=== PATIENT | female | born 1950 | race Caucasian/White ===

== ENCOUNTER 2017-03-17 13:28 | Outpatient (CLI) | payer BC, OTHER | END 2017-03-17 13:29 | disposition home or self-care (01) | DX: G47.33 Obstructive sleep apnea (adult) (pediatric) (principal) ==

== ENCOUNTER 2017-06-18 12:52 | Outpatient (CLI) | payer OTHER ==
--- NOTE | 2017-06-19 14:55 | Mammography Report ---
DIGITAL SCREENING MAMMOGRAM: 06/18/2017 CLINICAL INDICATION: A 66-year-old nulliparous patient with family history of breast cancer for scre ening. COMPARISON: 07/2015, 01/2014, 12/2012, 11/2011, 07/2010. TECHNIQUE: Routine CC and MLO projections were obtained of the breasts. FINDINGS: The breasts demonstrate heterogeneously dense fibroglandular parenchyma bilaterally. A fe w punctate, typically benign calcifications are present. No suspicious masses, clustered microcalcif ications, or regions of architectural distortion are identified. IMPRESSION: BENIGN FINDINGS. RECOMMENDATION: Routine annual screening unless otherwise clinically indicated. BI-RADS category 2, benign findings. STANDARD QUALIFYING STATEMENTS 1. This examination was reviewed with the aid of Computer-Aided Detection (CAD). 2. A negative or benign imaging report should not delay biopsy if clinically suspicious findings are present. Consider surgical consultation if warranted. More than 5% of cancers are not identified by i maging. 3. Dense breasts may obscure an underlying neoplasm. JOB #: [id number] EXT JOB #:[id number]
== END 2017-06-18 12:53 | disposition home or self-care (01) ==
LOC: DI 12:52
PROVIDERS: ATTEND Internal Medicine
DX: Z12.31 Encounter for screening mammogram for malignant neoplasm of breast (principal); Z80.3 Family history of malignant neoplasm of breast
CPT/HCPCS: 77067

== ENCOUNTER 2018-01-09 08:10 | Outpatient (CLI) | payer OTHER ==
[2018-01-09 11:50] LABS: BASOPHILS # (AUTO) 0.1 10^3/uL (0.0-0.1); BASOPHILS % (AUTO) 2.1 %; EOSINOPHILS # (AUTO) 0.2 10^3/uL (0.0-0.7); EOSINOPHILS % (AUTO) 4.3 %; HGB - HEMOGLOBIN 13.4 g/dL (12.0-16.0); LYMPHOCYTES # (AUTO) 1.2 10^3/uL (1.5-3.5); LYMPHOCYTES % (AUTO) 27.7 %; MEAN CORPUSCULAR HEMOGLOBIN 30.3 pg (27.0-31.0); MEAN CORPUSCULAR HGB CONC 33.7 g/dL (32.0-36.0); MEAN CORPUSCULAR VOLUME 90.1 fL (81.0-99.0); MONOCYTES # (AUTO) 0.5 10^3/uL (0.0-1.0); MONOCYTES % (AUTO) 11.4 %; NEUTROPHILS # (AUTO) 2.3 10^3/uL (1.5-6.6); NEUTROPHILS % (AUTO) 54.5 %; PLT - PLATELET COUNT 151 10^3/uL (130-450); RED BLOOD COUNT 4.43 10^6/uL (4.20-5.40); RED CELL DISTRIBUTION WIDTH 13.4 % (12.0-15.0); WHITE BLOOD COUNT 4.3 x10^3/uL (4.8-10.8)
[2018-01-09 12:03] LABS: ALBUMIN 3.9 g/dL (3.2-5.5); ALBUMIN/GLOBULIN RATIO 1.4 (1.0-2.2); ALKALINE PHOSPHATASE 43 IU/L (42-121); ALT ALANINE AMINOTRANSFERASE 19 IU/L (10-60); AST ASPARTATE AMINOTRANSFERASE 20 IU/L (10-42); BILIRUBIN,TOTAL 0.7 mg/dL (0.2-1.0); BUN - BLOOD UREA NITROGEN 16 mg/dL (6-20); CALCIUM 8.8 mg/dL (8.5-10.3); CARBON DIOXIDE - CO2 29 mmol/L (21-32); CHLORIDE 104 mmol/L (101-111); CHOL/HDL RATIO 3.1 (<4.4); CHOLESTEROL 202 mg/dL; CREATININE 0.8 mg/dL (0.4-1.0); GFR - MDRD 72 (>89); GLUCOSE 85 mg/dL (70-100); HDL CHOLESTEROL 66 mg/dL; LDL CHOLESTEROL,CALCULATED 124 mg/dL; LDL/HDL RATIO 1.9 (<4.4); SODIUM 139 mmol/L (135-145); TOTAL PROTEIN 6.7 g/dL (6.7-8.2); VLDL CHOLESTEROL 12 mg/dL
== END 2018-01-09 08:11 | disposition home or self-care (01) ==
LOC: LAB.F 08:10
PROVIDERS: ATTEND Internal Medicine
DX: Z00.00 Encounter for general adult medical examination without abnormal findings (principal)
CPT/HCPCS: 36415; 80053; 80061; 83721; 84443; 85025

== ENCOUNTER 2020-06-19 10:58 | Day surgery (SDC) | payer MEDICARE, OTHER ==
[2020-06-19] MEDS ORDERED: LACTATED RINGERS 1,000 ML IV ONE (11:47)
[2020-06-19] MEDS ORDERED: fentaNYL 250 MCG/5 ML VIAL IVP ONE (13:30)
[2020-06-19] MEDS ORDERED: MIDAZOLAM 2 MG/2 ML VIAL IVP ONE (13:30)
[2020-06-19] MEDS ORDERED: LACTATED RINGERS 800 ML IV ONE (14:11)
[2020-06-19 14:46] VITALS: BP 99/67
== END 2020-06-19 10:59 | disposition home or self-care (01) ==
LOC: SDS 10:58
PROVIDERS: ATTEND Internal Medicine Gastroenterology
PROC: 0DBN8ZZ Excision of Sigmoid Colon, Via Natural or Artificial Opening Endoscopic (ICD-10-PCS; principal; 2020-06-19 12:15)
DX: Z12.11 Encounter for screening for malignant neoplasm of colon (principal); K63.5 Polyp of colon
CPT/HCPCS: 45380; J3010; J7120

== ENCOUNTER 2020-07-07 14:30 | Outpatient (CLI) | payer MEDICARE, OTHER ==
--- NOTE | 2020-07-07 16:01 | DEXA Report ---
PROCEDURE: Dexa Spine and/or Hip INDICATIONS: OSTEOPENIA TECHNIQUE: Dual energy x-ray absorptiometry (DXA) was performed on a Ium System. Regions measur ed are the AP Spine, femoral neck, and if needed forearm. COMPARISON: None. FINDINGS: Lumbar Spine: Bone Mineral Density 1.068 g/cm/cm,T score -0.9, normal Left Hip: Bone Mineral Density 0.799 g/cm/cm,T score -1.7, osteopenia Left Femoral Neck: Bone Mineral Density 0.700 g/cm/cm, T score -2.4, osteopenia (T score greater or equal to -1.0: NORMAL) (T score from -1.1 to -2.4: OSTEOPENIA) (T score less than or equal to -2.5 to: OSTEOPOROSIS) Impression: Normal bone mineral density at the lumbosacral spine, osteopenia at the left hip region a nd also the left femoral neck. Patients with diagnosis of osteoporosis or osteopenia should have regular bone mineral density assess ment. For those eligible for Medicare, routine testing is allowed once every 2 years. Testing frequ ency can be increased for patients who have rapidly progressing disease or for those who are receivin g medical therapy to restore bone mass. Reviewed by: Juan Daniel Dao MD on 07/07/2020 3:59 PM PDT Approved by: Juan Daniel Dao MD on 07/07/2020 3:59 PM PDT Station ID: [id number]
== END 2020-07-07 14:31 | disposition home or self-care (01) ==
LOC: DI 14:30
PROVIDERS: ATTEND Internal Medicine
DX: M85.89 Other specified disorders of bone density and structure, multiple sites (principal)
CPT/HCPCS: 77080

== ENCOUNTER 2020-07-07 14:33 | Outpatient (CLI) | payer MEDICARE, OTHER ==
--- NOTE | 2020-07-10 16:38 | Mammography Report ---
BILATERAL DIGITAL SCREENING MAMMOGRAM 3D/2D: 07/07/2020 CLINICAL: Routine screening. Comparison is made to exams dated: 06/18/2017 mammogram, 08/09/2015 mammogram, 07/13/2015 mammogram, mammogram, 12/15/2012 mammogram, and 12/05/2011 mammogram - [facility]. The t issue of both breasts is heterogeneously dense. This may lower the sensitivity of mammography. No significant masses, calcifications, or other findings are seen in either breast. There has been no significant interval change. IMPRESSION: NEGATIVE There is no mammographic evidence of malignancy. A 1 year screening mammogram is recommended. This exam was interpreted at Station ID: [id number]. NOTE: For mammograms, a report in lay terms will be sent to the patient. Approximately 15% of breast malignancies will not be visualized mammographically. In the management of a palpable breast mass, a negative mammogram must not discourage biopsy of a clinically suspicious lesion. Electronically Signed By: Erwin Bui M.D. [email or web address]/penrad:07/07/2020 17:26:20 ACR BI-RADS Category 1: Negative 3341F PARENCHYMAL PATTERN: (D) - The breast(s) demonstrate(s) heterogeneously dense fibroglandular lexi romero. BI-RADS CATEGORY: (1) - 1 RECOMMENDATION: (ANNUAL) - Recommend routine annual screening mammography. [id number] 1 year screening LATERALITY: (B)
== END 2020-07-07 14:34 | disposition home or self-care (01) ==
LOC: DI 14:33
PROVIDERS: ATTEND Internal Medicine
DX: Z12.31 Encounter for screening mammogram for malignant neoplasm of breast (principal)
CPT/HCPCS: 77063; 77067

== ENCOUNTER 2021-01-30 09:41 | Outpatient (CLI) | payer MEDICARE, OTHER ==
[2021-01-30 15:05] LABS: BASOPHILS # (AUTO) 0.1 10^3/uL (0.0-0.1); BASOPHILS % (AUTO) 1.4 %; EOSINOPHILS # (AUTO) 0.2 10^3/uL (0.0-0.7); EOSINOPHILS % (AUTO) 3.9 %; HCT - HEMATOCRIT 42.3 % (37.0-47.0); HGB - HEMOGLOBIN 13.4 g/dL (12.0-16.0); LYMPHOCYTES # (AUTO) 1.2 10^3/uL (1.5-3.5); LYMPHOCYTES % (AUTO) 26.8 %; MEAN CORPUSCULAR HEMOGLOBIN 29.8 pg (27.0-31.0); MEAN CORPUSCULAR HGB CONC 31.7 g/dL (32.0-36.0); MEAN PLATELET VOLUME 11.5 fL (7.9-10.8); MONOCYTES # (AUTO) 0.4 10^3/uL (0.0-1.0); MONOCYTES % (AUTO) 9.5 %; NEUTROPHILS # (AUTO) 2.5 10^3/uL (1.5-6.6); NEUTROPHILS % (AUTO) 58.2 %; PLT - PLATELET COUNT 191 10^3/uL (130-450); RED CELL DISTRIBUTION WIDTH 13.9 % (12.0-15.0); WHITE BLOOD COUNT 4.3 x10^3/uL (4.8-10.8)
[2021-01-30 15:31] LABS: ALBUMIN 4.2 g/dL (3.2-5.5); ALBUMIN/GLOBULIN RATIO 1.4 (1.0-2.2); ALKALINE PHOSPHATASE 53 IU/L (42-121); ALT ALANINE AMINOTRANSFERASE 22 IU/L (10-60); AST ASPARTATE AMINOTRANSFERASE 20 IU/L (10-42); BILIRUBIN,TOTAL 0.8 mg/dL (0.2-1.0); BUN - BLOOD UREA NITROGEN 18 mg/dL (6-20); CALCIUM 9.5 mg/dL (8.5-10.3); CARBON DIOXIDE - CO2 29 mmol/L (21-32); CHLORIDE 101 mmol/L (101-111); CHOL/HDL RATIO 2.6 (<4.4); CHOLESTEROL 228 mg/dL; CREATININE 0.8 mg/dL (0.4-1.0); GFR - MDRD 71 (>89); GLUCOSE 89 mg/dL (70-100); HDL CHOLESTEROL 88 mg/dL; LDL CHOLESTEROL,CALCULATED 126 mg/dL; LDL/HDL RATIO 1.4 (<4.4); POTASSIUM 4.5 mmol/L (3.5-5.0); SODIUM 139 mmol/L (135-145); TOTAL PROTEIN 7.2 g/dL (6.7-8.2); TRIGLYCERIDES 69 mg/dL; VLDL CHOLESTEROL 14 mg/dL
[2021-01-30 15:34] LABS: THYROID STIMULATING HORMONE 1.26 uIU/mL (0.34-5.60)
== END 2021-01-30 09:42 | disposition home or self-care (01) ==
LOC: LAB.S 09:41
PROVIDERS: ATTEND Registered Nurse
DX: G47.33 Obstructive sleep apnea (adult) (pediatric) (principal); E78.5 Hyperlipidemia, unspecified; M85.80 Other specified disorders of bone density and structure, unspecified site
CPT/HCPCS: 36415; 80053; 80061; 83721; 84443; 85025